=== PATIENT | female | born 1970 | race Caucasian/White ===

== ENCOUNTER 2024-04-29 18:05 | Emergency (ER) | payer BC, SELFPAY ==
[2024-04-29] MEDS ORDERED: Ibuprofen 200 MG TAB ONE (18:59)
== END 2024-04-29 19:08 | disposition home or self-care (01) ==
LOC: NAV ERS 18:05
DX: S62.336A Displaced fracture of neck of fifth metacarpal bone, right hand, initial encounter for closed fracture (principal); F17.210 Nicotine dependence, cigarettes, uncomplicated; W22.01XA Walked into wall, initial encounter
CPT/HCPCS: 29125